=== PATIENT | male | born 1950 | race Two or more races ===

== ENCOUNTER 2016-04-15 13:18 | Outpatient (CLI) | payer MEDICARE, BC | END 2016-04-15 23:59 | disposition home health service (06) | LOC: WOU 13:18 | PROVIDERS: ATTEND Surgery | DX: T81.89XA Other complications of procedures, not elsewhere classified, initial encounter (principal); F41.8 Other specified anxiety disorders; I10 Essential (primary) hypertension; L98.493 Non-pressure chronic ulcer of skin of other sites with necrosis of muscle | CPT/HCPCS: 15271; A6402; A6407; Q4131 ×2 ==

== ENCOUNTER 2016-04-22 13:00 | Outpatient (CLI) | payer MEDICARE, BC | END 2016-04-22 23:59 | disposition home health service (06) | LOC: WOU 13:00 | PROVIDERS: ATTEND Surgery | DX: T81.89XA Other complications of procedures, not elsewhere classified, initial encounter (principal); F06.4 Anxiety disorder due to known physiological condition; I10 Essential (primary) hypertension; M86.5 Other chronic hematogenous osteomyelitis | CPT/HCPCS: 15271; A6402; A6407 ==

== ENCOUNTER 2016-04-29 09:49 | Outpatient (CLI) | payer MEDICARE, BC | END 2016-04-29 23:59 | disposition home health service (06) | LOC: WOU 09:49 | PROVIDERS: ATTEND Surgery | DX: T81.89XA Other complications of procedures, not elsewhere classified, initial encounter (principal); L98.493 Non-pressure chronic ulcer of skin of other sites with necrosis of muscle; M86.5 Other chronic hematogenous osteomyelitis; I10 Essential (primary) hypertension; F06.4 Anxiety disorder due to known physiological condition | CPT/HCPCS: 15271; A6407; Q4131 ×2 ==

== ENCOUNTER 2016-05-06 12:57 | Outpatient (CLI) | payer MEDICARE, BC | END 2016-05-06 23:59 | disposition home health service (06) | LOC: WOU 12:57 | PROVIDERS: ATTEND Surgery | DX: T81.89XA Other complications of procedures, not elsewhere classified, initial encounter (principal); L98.493 Non-pressure chronic ulcer of skin of other sites with necrosis of muscle; I10 Essential (primary) hypertension; F41.8 Other specified anxiety disorders; M86.68 Other chronic osteomyelitis, other site | CPT/HCPCS: 15271; A6402; A6407; Q4131 ==

== ENCOUNTER 2016-05-13 13:43 | Outpatient (CLI) | payer MEDICARE, BC | END 2016-05-13 23:59 | disposition home health service (06) | LOC: WOU 13:43 | PROVIDERS: ATTEND Surgery | DX: T81.89XA Other complications of procedures, not elsewhere classified, initial encounter (principal); L98.493 Non-pressure chronic ulcer of skin of other sites with necrosis of muscle; I10 Essential (primary) hypertension; F41.8 Other specified anxiety disorders; M86.68 Other chronic osteomyelitis, other site | CPT/HCPCS: 11043; A6402; A6407 ==

== ENCOUNTER 2016-05-20 12:45 | Outpatient (CLI) | payer MEDICARE, BC | END 2016-05-20 23:59 | disposition home health service (06) | LOC: WOU 12:45 | PROVIDERS: ATTEND Surgery | DX: L98.493 Non-pressure chronic ulcer of skin of other sites with necrosis of muscle (principal); T81.89XD Other complications of procedures, not elsewhere classified, subsequent encounter; I10 Essential (primary) hypertension; F41.8 Other specified anxiety disorders; M86.68 Other chronic osteomyelitis, other site | CPT/HCPCS: 11043; A6402; A6407 ==

== ENCOUNTER 2016-05-27 13:20 | Outpatient (CLI) | payer MEDICARE, BC | END 2016-05-27 23:59 | disposition home or self-care (01) | LOC: WOU 13:20 | PROVIDERS: ATTEND Surgery | DX: T81.89XA Other complications of procedures, not elsewhere classified, initial encounter (principal); M86.5 Other chronic hematogenous osteomyelitis; F06.4 Anxiety disorder due to known physiological condition; I10 Essential (primary) hypertension; B96.5 Pseudomonas (aeruginosa) (mallei) (pseudomallei) as the cause of diseases classified elsewhere | CPT/HCPCS: 11043; A6402; A6407 ==

== ENCOUNTER 2016-06-01 14:05 | Outpatient (CLI) | payer MEDICARE, BC | END 2016-06-01 23:59 | disposition home or self-care (01) | LOC: VASLAB 14:05 | PROVIDERS: ATTEND Surgery Vascular Surgery | DX: I86.8 Varicose veins of other specified sites (principal); I83.813 Varicose veins of bilateral lower extremities with pain; M86.5 Other chronic hematogenous osteomyelitis | CPT/HCPCS: G0463 ==

== ENCOUNTER 2016-06-03 12:45 | Outpatient (CLI) | payer MEDICARE, BC | END 2016-06-03 23:59 | disposition home or self-care (01) | DX: T81.89XA Other complications of procedures, not elsewhere classified, initial encounter (principal); M86.5 Other chronic hematogenous osteomyelitis; L98.491 Non-pressure chronic ulcer of skin of other sites limited to breakdown of skin; I10 Essential (primary) hypertension; F06.4 Anxiety disorder due to known physiological condition | CPT/HCPCS: 11042; A6402 ==

== ENCOUNTER 2016-06-08 09:55 | Outpatient (CLI) | payer MEDICARE, BC | END 2016-06-08 23:59 | disposition home or self-care (01) | LOC: WOU 09:55 | PROVIDERS: ATTEND Surgery Vascular Surgery | DX: I83.813 Varicose veins of bilateral lower extremities with pain (principal); I83.893 Varicose veins of bilateral lower extremities with other complications | CPT/HCPCS: 93970-TC ==

== ENCOUNTER 2016-06-10 10:55 | Outpatient (CLI) | payer MEDICARE, BC | END 2016-06-10 23:59 | disposition home or self-care (01) | LOC: WOU 10:55 | PROVIDERS: ATTEND Surgery | DX: T81.89XA Other complications of procedures, not elsewhere classified, initial encounter (principal); M86.5 Other chronic hematogenous osteomyelitis; L98.491 Non-pressure chronic ulcer of skin of other sites limited to breakdown of skin; I10 Essential (primary) hypertension; F60.4 Histrionic personality disorder | CPT/HCPCS: 11042; A6402 ==

== ENCOUNTER 2016-06-28 12:50 | Outpatient (CLI) | payer MEDICARE, BC | END 2016-06-28 23:59 | disposition home or self-care (01) | LOC: WOU 12:50 | PROVIDERS: ATTEND Surgery | DX: T81.89XA Other complications of procedures, not elsewhere classified, initial encounter (principal); I10 Essential (primary) hypertension; F60.4 Histrionic personality disorder; M86.5 Other chronic hematogenous osteomyelitis; L98.491 Non-pressure chronic ulcer of skin of other sites limited to breakdown of skin | CPT/HCPCS: 11042; A6402 ==

== ENCOUNTER 2016-07-19 12:55 | Outpatient (CLI) | payer MEDICARE, BC | END 2016-07-19 23:59 | disposition home or self-care (01) | LOC: WOU 12:55 | PROVIDERS: ATTEND Surgery | DX: T81.89XD Other complications of procedures, not elsewhere classified, subsequent encounter (principal); M86.5 Other chronic hematogenous osteomyelitis; I10 Essential (primary) hypertension; F06.4 Anxiety disorder due to known physiological condition | CPT/HCPCS: G0463 ==

== ENCOUNTER 2016-08-30 12:50 | Outpatient (CLI) | payer MEDICARE, BC | END 2016-08-30 23:59 | disposition home or self-care (01) | LOC: WOU 12:50 | PROVIDERS: ATTEND Surgery | DX: Z48.817 Encounter for surgical aftercare following surgery on the skin and subcutaneous tissue (principal); M86.68 Other chronic osteomyelitis, other site; I10 Essential (primary) hypertension; F41.8 Other specified anxiety disorders; K21.9 Gastro-esophageal reflux disease without esophagitis | CPT/HCPCS: G0463 ==

== ENCOUNTER 2016-11-29 12:50 | Outpatient (CLI) | payer MEDICARE, BC | END 2016-11-29 23:59 | disposition home or self-care (01) | LOC: WOU 12:50 | PROVIDERS: ATTEND Surgery | DX: Z09 Encounter for follow-up examination after completed treatment for conditions other than malignant neoplasm (principal); M86.68 Other chronic osteomyelitis, other site; I10 Essential (primary) hypertension | CPT/HCPCS: G0463 ==

== ENCOUNTER 2017-05-30 12:45 | Outpatient (CLI) | payer MEDICARE, BC | END 2017-05-30 23:59 | disposition home or self-care (01) | LOC: WOU 12:45 | PROVIDERS: ATTEND Surgery | DX: Z09 Encounter for follow-up examination after completed treatment for conditions other than malignant neoplasm (principal); I10 Essential (primary) hypertension | CPT/HCPCS: G0463 ==

== ENCOUNTER 2020-09-19 10:59 | Outpatient (CLI) | payer MEDICARE, BC | END 2020-09-19 23:59 | disposition home or self-care (01) | LOC: CT 10:59 | PROVIDERS: ATTEND Internal Medicine Interventional Cardiology | DX: M47.23 Other spondylosis with radiculopathy, cervicothoracic region (principal); M50.13 Cervical disc disorder with radiculopathy, cervicothoracic region; M48.03 Spinal stenosis, cervicothoracic region; M25.78 Osteophyte, vertebrae | CPT/HCPCS: 72125-TC ==